=== PATIENT | male | born 1945 | race Caucasian/White ===

== ENCOUNTER → 2018-08-03 | Outpatient (REF) | payer MEDICARE ==
[2018-08-03 13:52] LABS: BASO % 0.4 % (0.0-1.0); EOS # 0.2 10^3/uL (0.0-0.50); EOS % 2.5 % (0.0-3.0); HEMATOCRIT 46.1 % (42.0-52.0); HEMOGLOBIN 15.4 g/dl (13.5-17.5); LYMPH # 1.8 10^3/uL (1.5-4.5); LYMPH % 18.6 % (24.0-44.0); MEAN CORPUSCULAR HEMOGLOBIN 30.1 pg (27.0-33.0); MEAN CORPUSCULAR HGB CONC 33.4 g/dl (32.0-36.5); MEAN CORPUSCULAR VOLUME 90.2 fl (80.0-96.0); MONO # 0.8 10^3/uL (0.0-0.8); MONO % 8.3 % (0.0-5.0); NEUTROPHILS # 6.6 10^3/uL (1.8-7.7); NEUTROPHILS % 69.5 % (36.0-66.0); PLATELET COUNT, AUTOMATED 181 10^3/uL (150-450); RED BLOOD COUNT 5.11 10^6/uL (4.30-6.10); WHITE BLOOD COUNT 9.4 10^3/uL (4.0-10.0)
[2018-08-03 14:14] LABS: HEMOGLOBIN A1c 7.1 %
[2018-08-03 14:17] LABS: ERYTHROCYTE SEDIMENTATION RATE 7 mm/hr (0-20)
[2018-08-03 14:36] LABS: ALT/SGPT 73 U/L (12-78); BILIRUBIN,TOTAL 0.5 MG/DL (0.2-1.0); BLOOD UREA NITROGEN 20 MG/DL (7-18); CALCIUM LEVEL 10.3 MG/DL (8.8-10.2); CARBON DIOXIDE LEVEL 26 MEQ/L (21-32); CHLORIDE LEVEL 106 MEQ/L (98-107); CREATININE FOR GFR 0.92 MG/DL (0.70-1.30); FOLATE > 24.0 NG/ML (>5.4); GLOMERULAR FILTRATION RATE > 60.0 (>42); GLUCOSE, FASTING 150 MG/DL (70-100); POTASSIUM SERUM 4.4 MEQ/L (3.5-5.1); RHEUMATOID FACTOR QUANT < 10.0 IU/ML (<15.0); SODIUM LEVEL 140 MEQ/L (136-145); TOTAL PROTEIN 6.7 GM/DL (6.4-8.2); VITAMIN B12 LEVEL 514 PG/ML (247-911)
[2018-08-05 11:15] LABS: ALBUMIN 4.01 GM/DL (3.29-5.55); ALBUMIN % 59.9 % (55.8-66.1); ALPHA-1-GLOBULIN % 4.1 % (2.9-4.9); ALPHA-1-GLOBULINS 0.27 GM/DL (0.17-0.41); ALPHA-2-GLOBULINS 0.89 GM/DL (0.42-0.99); ALPHA-2-GLOBULINS % 13.3 % (7.1-11.8); BETA-1-GLOBULINS 0.46 GM/DL (0.28-0.60); BETA-1-GLOBULINS % 6.9 % (4.7-7.2); BETA-2-GLOBULINS 0.35 GM/DL (0.19-0.55); BETA-2-GLOBULINS % 5.2 % (3.2-6.5); GAMMA GLOBULIN % 10.6 % (11.1-18.8); GAMMA GLOBULINS 0.71 GM/DL (0.65-1.58)
[2018-08-08 15:38] LABS: ANTI DOUBLE STRAND-DNA AB <1 IU/mL (0-9); ANTINUCLEAR ANTIBODIES DIRECT Negative (Negative); SJOGREN'S ANTI SS-A <0.2 AI (0.0-0.9); SJOGREN'S ANTI SS-B <0.2 AI (0.0-0.9); VITAMIN B1 LEVEL WHOLE BLOOD 152.7 nmol/L (66.5-200.0); VITAMIN B6,PYRIDOXAL PHOSPHATE 21.1 ug/L (5.3-46.7); VITAMIN E(ALPHA TOCOPHEROL) 12.3 mg/L (9.0-29.0); VITAMIN E(GAMMA TOCOPHEROL) 2.6 mg/L (0.5-4.9)
[2018-08-10 09:55] LABS: PTT LUPUS TYPE ANTICOAG SCREEN 1.1 (0-1.2)
== END ==
LOC: M LABNEURO 12:48
PROVIDERS: ATTEND Psychiatry & Neurology Neurology
DX: G62.9 Polyneuropathy, unspecified (principal)

== ENCOUNTER 2022-09-24 06:12 | Day surgery (SDC) | payer MEDICARE ==
[~2022-09-24] VITALS: Ht 175.3 cm; Wt 99.5 kg
[~2022-09-24 06:12] MED LIST: ASPI81TA26 PO; BURDOCK ROOT PA; CALC600T61 PO; DOXY-443 PO; ERGO500029 PO; HYDR-3490 PO; JARD1TAB3 PO; LEVO100T5 PO; METF10004 PO; METO50TA7 PO; MULT-90 PO; POTA-298 PO; RAMI1CAP26 PO; SIMV20TA22 PO; ZOLO100T PO
[2022-09-24] MEDS ORDERED: INSULIN LISPRO (NovoLOG) PER UNIT SC PRN (06:30)
[2022-09-24] MEDS ORDERED: LR 1,000 ML IV SCH ×2 (06:30→08:50)
[2022-09-24] MEDS ORDERED: BUPIVACAINE HCL 0.25% 10ML VIAL As Ordered ONE (07:21)
[2022-09-24] MEDS ORDERED: ceFAZolin 2 GM/D5W 50 ML IV BAG As Ordered ONE (07:48)
[2022-09-24] MEDS ORDERED: ACETAMINOPHEN 1000MG 100ML IV BAG As Ordered ONE (07:51)
[2022-09-24] MEDS ORDERED: MIDAZOLAM INJ 2MG/2ML VIAL As Ordered ONE (07:51)
[2022-09-24] MEDS ORDERED: ONDANSETRON 4MG 2ML VIAL As Ordered ONE (07:51)
[2022-09-24] MEDS ORDERED: fentaNYL 100 MCG/2 ML INJECTION As Ordered ONE ×2 (07:51→08:01)
[2022-09-24] MEDS ORDERED: METOCLOPRAMIDE INJ 10MG/2ML VIAL As Ordered ONE (07:51)
[2022-09-24] MEDS ORDERED: LIDOCAINE 2% 100MG/5ML SDV (FOR ANES.) As Ordered ONE (07:51)
[2022-09-24] MEDS ORDERED: propofoL 200 MG/20 ML VIAL As Ordered ONE (07:51)
[2022-09-24] MEDS ORDERED: KETOROLAC 60MG 2ML VIAL As Ordered ONE (07:51)
[2022-09-24] MEDS ORDERED: SEVOFLURANE INHAL SOLN 250 ML BTL As Ordered ONE (08:18)
[2022-09-24] MEDS ORDERED: POLYSPORIN TOPICAL OINTMENT 15GM As Ordered ONE (08:37)
[2022-09-24] MEDS ORDERED: ONDANSETRON 4MG 2ML VIAL IV PRN (08:50)
[2022-09-24] MEDS ORDERED: oxyCODONE 5MG TAB PO PRN (08:50)
[2022-09-24] MEDS ORDERED: METOCLOPRAMIDE INJ 10MG/2ML VIAL IV PRN (08:50)
[2022-09-24] MEDS ORDERED: fentaNYL 100 MCG/2 ML INJECTION IV PRN (08:50)
[2022-09-24 09:56] VITALS: BP 155/74; TEMP 97.7; O2SAT 96
== END 2022-09-24 09:52 | disposition home or self-care (01) ==
LOC: M SDC 06:12
PROVIDERS: ATTEND Orthopaedic Surgery Hand Surgery
DX: L03.011 Cellulitis of right finger (principal); S66.323D Laceration of extensor muscle, fascia and tendon of left middle finger at wrist and hand level, subsequent encounter; B95.4 Other streptococcus as the cause of diseases classified elsewhere; X58.XXXD Exposure to other specified factors, subsequent encounter; Y92.89 Other specified places as the place of occurrence of the external cause; I10 Essential (primary) hypertension; E78.00 Pure hypercholesterolemia, unspecified; E11.9 Type 2 diabetes mellitus without complications; E03.9 Hypothyroidism, unspecified; F41.9 Anxiety disorder, unspecified; F32.A Depression, unspecified; G47.30 Sleep apnea, unspecified; R06.83 Snoring; Z79.899 Other long term (current) drug therapy; Z79.82 Long term (current) use of aspirin; Z79.890 Hormone replacement therapy; Z79.2 Long term (current) use of antibiotics
CPT/HCPCS: 26418; 87070; 87075; 87077; 87186; 87205; 93005; J0131; J0690; J1100; J1885; J2250; J2405; J2765; J3010